=== PATIENT | female | born 1995 | race African-American/Black ===

== ENCOUNTER 2017-10-21 23:45 | Emergency (ER) | payer OTHER ==
[~2017-10-21] VITALS: Ht 160 cm; Wt 117.9 kg
--- NOTE | 2017-10-22 01:03 | Diagnostic Imaging Report ---
ANKLE 3 + VIEWS RIGHT HISTORY: Twisted ankle, pain COMPARISON: None FINDINGS: Bones: No displaced fracture. Osseous alignment is within normal limits. Joints: The joint spaces are well-maintained. Soft tissues: The soft tissues appear unremarkable. IMPRESSION: No acute radiographic abnormality. Signed by: Dr. Avel Knight M.D. on 10/22/2017 1:00 AM
[2017-10-22 01:22] VITALS: BP 140/83
== END 2017-10-22 01:55 | disposition home or self-care (01) ==
LOC: ER 23:45
DX: S93.431A Sprain of tibiofibular ligament of right ankle, initial encounter (principal); X50.1XXA Overexertion from prolonged static or awkward postures, initial encounter; Y93.01 Activity, walking, marching and hiking; Y92.488 Other paved roadways as the place of occurrence of the external cause; I10 Essential (primary) hypertension; E28.2 Polycystic ovarian syndrome
CPT/HCPCS: 99284